=== PATIENT | female | born 1950 | race Caucasian/White ===

== ENCOUNTER 2017-11-13 19:18 | Inpatient (IN) | payer SELFPAY ==
[~2017-11-13] VITALS: Ht 157.5 cm; Wt 68.5 kg
[2017-11-13 19:38] VITALS: Ht 157.5 cm; Wt 68.5 kg
[2017-11-13 21:16] LABS: BASOPHIL % 0.5 % (0-2); PLATELET COUNT 317 x10^3mcL (130-400); RED CELL DISTRIBUTION WIDTH 13.1 % (11.5-14.5)
[2017-11-13 21:22] LABS: CARBON DIOXIDE 34.2 mmol/L (21-32); CREATININE SERUM 1.1 mg/dL (0.6-1.0); POTASSIUM SERUM 4.9 mmol/L (3.5-5.1)
[2017-11-13 21:26] LABS: BILIRUBIN TOTAL 0.3 mg/dL (0.20-1.00); TOTAL PROTEIN, SERUM 7.9 g/dL (6.4-8.2)
[2017-11-13 21:27] LABS: ALBUMIN 3.2 g/dL (3.4-5.0)
[2017-11-13] MEDS ORDERED: METFORMIN HYDR500 M1 (22:18)
[2017-11-13] MEDS ORDERED: CLOTRIMAZOLE1% TOP (22:19)
[2017-11-14 00:28] VITALS: BP 178/51
[2017-11-14 01:47] LABS: T3 TOTAL 1.15 ng/mL
[2017-11-14 01:48] LABS: CHOLESTEROL/HDL RATIO 4.7; MAGNESIUM 1.8 mg/dL (1.8-2.4); PHOSPHOROUS 4.3 mg/dL (2.5-4.9)
[2017-11-14 01:52] LABS: FREE T4 1.21 ng/dL (0.76-1.46); FREE THYROXINE INDEX 3.4 ug/dL (1.4-4.5); T4(THYROXINE) 10.5 ug/dL (4.7-13.3)
[2017-11-14 04:52] VITALS: BP 183/74
[2017-11-14 08:46] VITALS: BP 162/70
[2017-11-14 09:30] VITALS: BP 134/77
[2017-11-14 14:47] LABS: UA SPECIFIC GRAVITY 1.015 (1.005-1.035); microscopic required? YES; urine erythrocyte TRACE (NEGATIVE)
[2017-11-14 17:53] VITALS: BP 143/57
[2017-11-14 21:09] VITALS: BP 148/62
[2017-11-15 06:00] VITALS: BP 143/68
[2017-11-15 06:34] LABS: BASOPHIL % 0.4 % (0-2); PLATELET COUNT 277 x10^3mcL (130-400); RED CELL DISTRIBUTION WIDTH 13.3 % (11.5-14.5)
[2017-11-15 06:57] LABS: CALCIUM 8.7 mg/dL (8.5-10.1); CARBON DIOXIDE 29.6 mmol/L (21-32); CHLORIDE SERUM 105 mmol/L (98-107); CHOLESTEROL 148 mg/dL (<200); CHOLESTEROL/HDL RATIO 4.1; CREATININE SERUM 0.9 mg/dL (0.6-1.0); GFR1 > 60 mL/min; GLUCOSE SERUM 114 mg/dL (74-106); HDL CHOLESTEROL 36 mg/dL (40-60); MAGNESIUM 1.8 mg/dL (1.8-2.4); POTASSIUM SERUM 4.8 mmol/L (3.5-5.1); SODIUM SERUM 140 mmol/L (136-145); TRIGLYCERIDES 183 mg/dL (<150)
[2017-11-15 10:31] VITALS: BP 166/66
[2017-11-15] MEDS ORDERED: CIP750 PO (13:03)
[2017-11-15] MEDS ORDERED: BD LACTINEX1.4 MG PO (13:04)
[2017-11-15] MEDS ORDERED: FLA500 PO (13:04)
[2017-11-15] MEDS ORDERED: LIPI10 PO (13:22)
[2017-11-15] MEDS ORDERED: ZES5 PO (13:22)
[2017-11-15] MEDS ORDERED: METFORMIN HCL1000 MG PO (13:33)
[2017-11-15 15:16] VITALS: BP 166/66
== END 2017-11-15 15:50 | disposition home or self-care (01) | DRG 629 ==
LOC: ED 19:18 → MU 23:31 → DU 23:31 → MU 11-14 11:07
PROVIDERS: Emergency Medicine; Family Medicine
PROC: 0QBQ0ZZ Excision of Right Toe Phalanx, Open Approach (ICD-10-PCS; principal; 2017-11-14)
DX: E11.69 Type 2 diabetes mellitus with other specified complication (principal); M86.171 Other acute osteomyelitis, right ankle and foot; E87.1 Hypo-osmolality and hyponatremia; E44.1 Mild protein-calorie malnutrition; E11.621 Type 2 diabetes mellitus with foot ulcer; L97.519 Non-pressure chronic ulcer of other part of right foot with unspecified severity; N17.0 Acute kidney failure with tubular necrosis; D64.9 Anemia, unspecified; L03.031 Cellulitis of right toe; E11.65 Type 2 diabetes mellitus with hyperglycemia; E11.42 Type 2 diabetes mellitus with diabetic polyneuropathy; I10 Essential (primary) hypertension; E78.5 Hyperlipidemia, unspecified; Z79.84 Long term (current) use of oral hypoglycemic drugs; Z68.27 Body mass index [BMI] 27.0-27.9, adult
CPT/HCPCS: 82962; 83880; 84439; J1885; J1956; J2001; J2543; J3370; J3490; J7030; Q0092

== ENCOUNTER 2019-03-22 19:44 | Emergency (ER) | payer MEDICAID ==
[~2019-03-22] VITALS: Ht 170.2 cm; Wt 62.1 kg
[~2019-03-22 19:44] MED LIST: BD LACTINEX1.4 MG PO; CIP750 PO; CLOTRIMAZOLE1% TOP; FLA500 PO; LIPI10 PO; METFORMIN HCL1000 MG PO; METFORMIN HYDR500 M1; ZES5 PO
[2019-03-22 19:59] VITALS: Ht 170.2 cm; Wt 62.1 kg
[2019-03-22 21:07] VITALS: BP 151/76
== END 2019-03-22 21:07 | disposition home or self-care (01) ==
LOC: ED 19:44
DX: H57.11 Ocular pain, right eye (principal); H91.93 Unspecified hearing loss, bilateral; H53.8 Other visual disturbances; E11.9 Type 2 diabetes mellitus without complications